=== PATIENT | male | born 1955 | race Caucasian/White ===

== ENCOUNTER 2018-06-30 11:22 | Emergency (ER) | payer OTHER, MEDICAID ==
[~2018-06-30] VITALS: Ht 167.6 cm; Wt 75.0 kg
[2018-06-30 17:00] VITALS: BP 122/48
== END 2018-06-30 17:24 | disposition home or self-care (01) ==
LOC: ER 12:16
DX: S62.102D Fracture of unspecified carpal bone, left wrist, subsequent encounter for fracture with routine healing (principal); R56.9 Unspecified convulsions; Z86.73 Personal history of transient ischemic attack (TIA), and cerebral infarction without residual deficits; Z87.2 Personal history of diseases of the skin and subcutaneous tissue; X58.XXXD Exposure to other specified factors, subsequent encounter
CPT/HCPCS: 73090; 73110; 99284; Z7610